=== PATIENT | female | born 1995 | race Caucasian/White ===

== ENCOUNTER → 2019-01-02 | Outpatient (CLI) | payer OTHER ==
[~2019-01-02] MED LIST: ALBU90OI61 INH; ESCI20 PO; OMEP20ER PO; ORTHO TRI-CYCL1 EACH PO
[2019-01-02 14:36] LABS: U Amphetamine Screen Not Detected; U Barbituate Screen Not Detected; U Benzodiazapine Screen Not Detected; U Buprenorphine Screen Not Detected; U Cannabinoids Screen Not Detected; U Cocaine Screen Not Detected; U Methadone Screen Not Detected; U Methamphetamine Screen Not Detected; U Opiates Screen Not Detected; U Oxycodone Screen Not Detected; U Phencyclidine Screen Not Detected; U Propoxyphene Screen Not Detected
[2019-01-06 04:13] LABS: COTININE Negative ng/mL (Cutoff=300)
== END | disposition home or self-care (01) ==
LOC: LAB 11:34 → LAB SHORT 11:34
PROVIDERS: Surgery
DX: Z01.812 Encounter for preprocedural laboratory examination (principal); E55.9 Vitamin D deficiency, unspecified; E66.01 Morbid (severe) obesity due to excess calories

== ENCOUNTER 2021-04-30 16:14 | Observation (INO) | payer OTHER ==
[~2021-04-30] VITALS: Ht 160 cm; Wt 143.4 kg
[2021-04-30 16:49] LABS: BASOPHILS ABSOLUTE AUTO 0.05 K/mm3 (0.00-0.23); BASOPHILS PERCENT AUTO 0 % (0-2); EOSINOPHILS ABSOLUTE AUTO 0.02 K/mm3 (0.00-0.68); EOSINOPHILS PERCENT AUTO 0 % (0-6); Hematocrit 42.1 % (33.0-51.0); Hemoglobin 14.1 g/dL (11.5-16.0); IMMATURE GRAN ABSOLUTE AUTO 0.06 K/mm3 (0.00-0.10); IMMATURE GRAN PERCENT AUTO 1 % (0-1); LYMPHOCYTES ABSOLUTE AUTO 1.64 K/mm3 (0.84-5.20); LYMPHOCYTES PERCENT AUTO 15 % (21-46); MONOCYTES ABSOLUTE AUTO 0.39 K/mm3 (0.16-1.47); MONOCYTES PERCENT AUTO 4 % (4-13); Mean Corpuscular HGB 29.1 pg (26.0-34.0); Mean Corpuscular HGB Conc 33.5 g/dL (31.5-36.5); Mean Corpuscular Volume 87 fL (80-100); Mean Platelet Volume 10.3 fL (9.1-12.4); NEUTROPHILS ABSOLUTE AUTO 8.99 K/mm3 (1.96-9.15); NEUTROPHILS PERCENT AUTO 81 % (41-73); Platelet Count 250 K/mm3 (150-400); RDW Coefficient Variation 12.8 % (11.7-14.2); RDW Standard Deviation 40.4 fL (35.1-46.3); Red Blood Cell Count 4.84 M/mm3 (3.80-5.20); White Blood Cell Count 11.15 K/mm3 (4.00-11.30)
[2021-04-30 17:06] LABS: Alanine Aminotransfer (ALT/SGP 153 U/L (12-78); Albumin, Blood 3.4 g/dL (3.4-5.0); Albumin/Globulin Ratio 0.7 (0.8-1.8); Alk Phos 100 U/L (50-136); Anion Gap 9 mmol/L (6-16); Aspartate Aminotrans (AST/SGOT 167 U/L (12-37); Bilirubin, Total 0.5 mg/dL (0.1-1.0); Blood Urea Nitrogen 11 mg/dL (8-24); Bun/Creatinine Ratio 16.8 (12.0-20.0); CO2, Blood 23 mmol/L (21-32); Calcium, Blood 9.6 mg/dL (8.5-10.1); Chloride, Blood 103 mmol/L (98-108); Creatinine, Blood 0.65 mg/dL (0.40-1.00); Globulin, Blood 5.2 g/dL (2.2-4.0); Glomerular Filtration Rate >60 (60-); Glucose, Blood 233 mg/dL (70-99); Sodium, Blood 135 mmol/L (136-145); Total Protein, Blood 8.6 g/dL (6.4-8.2)
[2021-04-30] MEDS ORDERED: OMEP20ER PO (17:37)
[2021-04-30 18:30] LABS: Source, Urine Clean Catch
[2021-04-30 18:38] LABS: Appearance, Urine Clear (Clear); Bilirubin, Urine Neg (Neg); Blood, Urine 2+ (Neg); Color, Urine Amber (P-Yellow); Glucose Qualitative, Urine 3+ (Neg); Ketones, Urine 1+ (Neg); Leukocyte Esterase, Urine 1+ (Neg); Nitrite, Urine Neg (Neg); Protein, Urine 4+ (Neg); Specific Gravity, Urine 1.015 (1.003-1.022); Urobilinogen, Urine NORM (Normal)
[2021-04-30 18:43] LABS: Bacteria Many /hpf; Mucus Light (0-Heavy); Red Blood Cells, Urine 0-2 /hpf (0-2); Squamous Epithelial Cells Mod /hpf (Few)
--- NOTE | 2021-05-01 05:55 | NUR ---
SHIFT SUMMARY: RAJEEV IS A&OX4. VSS, NO ACUTE EVENTS OVERNIGHT. SHE REPORTS ADEQUATE PAIN CONTROL WITH 50 MCG OF FENTANYL. IF TO R FOREARM PATENT. SHE IS A ONE PERSON STANDBY ASSIST FOR CORDS/IV POLE. SHE REFUSED NON-SLIP SOCKS DESPITE EDUCATING ON IMPORTANCE OF SAFETY AND FALL PREVENTION. SHE IS URINATING WITHOUT DIFFICULTY, WAS TOLERATING PO INTAKE WELL UNTIL BEING MADE NPO AT MIDNIGHT. SHE IS LYING IN BED WITH THE CALL LIGHT IN REACH. WILL REPORT TO DAY SHIFT RN.
[2021-05-01 10:18] LABS: SARS-Cov-2 (COVID-19) PCR, MMC NEGATIVE (NEGATIVE)
--- NOTE | 2021-05-01 10:37 | NUR ---
DR CHAUDHARY IN TO SEE PT.
--- NOTE | 2021-05-01 13:15 | NUR ---
PT TO SURGERY GRANDMOTHER AT BEDSIDE.
--- NOTE | 2021-05-01 13:23 | NUR ---
History, Chart, Medications and Allergies reviewed before start of procedure. Lungs clear T/O to Auscultation. Patient confirms NPO status and agrees with scheduled surgery. Pre-Op teaching done. Pt verbalizes understanding.
--- NOTE | 2021-05-01 15:10 | NUR ---
05/01/21 1510 YOLANDATHEO PT RECEIVED SCHEDULED DOSE IF ANTIBIOTICS PRIOR TO PROCEDURE PER DR ORDERS.
--- NOTE | 2021-05-01 18:35 | NUR ---
SUMMARY PT ARRIVED BACK TO UNIT FROM PACU APPROXIMATELY 1715. SCOOTED SELF OVER FROM GURNEY TO BED. VSS. AMBULATED TO RESTROOM AT APPROXIMATELY 1815 AND VOIDED 200 ML DARK YELLOW URINE. USED GAIT BELT FOR SAFETY; PT REPORTED FELT SLIGHTLY DIZZY BUT IMPROVED ON WAY BACK TO BED FROM RESTROOM. CALL LIGHT IN REACH. IV FLUIDS INFUSING PER ORDERS. GAUZE AND TRANSPARENT WINDOWS TO 4 LAP SITES.
--- NOTE | 2021-05-01 19:03 | NUR ---
REPORT GIVEN TO ONCOMING SHIFT.
--- NOTE | 2021-05-02 04:04 | NUR ---
SHIFT SUMMARY: PT POD#1 FOR A LAP APPY. LAP SITES C/D/I WITH GAUZE AND TEGADERM. ACTIVE BT X4. PT REPORTS PASSING FLATUS. TOLERATING A CLEAR LIQUID DIET THROUGHOUT NIGHT. DENIES N/V. PAIN MANAGED WITH TORADOL PER EMAR. PT INDEPENDENT IN ROOM. VOIDING WELL. PT HAD 2 SMALL BM'S THIS MORNING.
--- NOTE | 2021-05-02 10:41 | NUR ---
DR CHAUDHRAY IN TO SEE PT.
--- NOTE | 2021-05-02 12:51 | NUR ---
DISCHARGED DC'D IV, CATHETER INTACT. REVIEWED DC INSTRUCTIONS W/PT; VERBALIZED UNDERSTANDING. PT LEFT UNIT IN WC W/POSSESSIONS IN HAND TO RIDE AWAITING OUTSIDE.
== END 2021-05-02 12:54 | disposition home or self-care (01) ==
LOC: ER 16:14 → SURS 20:04
PROVIDERS: Physician Assistant; Surgery; ADMIT Surgery
PROC: 0DTJ4ZZ Resection of Appendix, Percutaneous Endoscopic Approach (ICD-10-PCS; principal; 2021-05-01 13:00)
DX: K35.33 Acute appendicitis with perforation, localized peritonitis, and gangrene, with abscess (principal); K21.9 Gastro-esophageal reflux disease without esophagitis; K76.0 Fatty (change of) liver, not elsewhere classified; E66.01 Morbid (severe) obesity due to excess calories; Z68.43 Body mass index [BMI] 50.0-59.9, adult; Z88.5 Allergy status to narcotic agent; Z20.822 Contact with and (suspected) exposure to COVID-19
CPT/HCPCS: 36415; 74177; 80053; 81001; 81025; 83690; 85025; 87086; 88304; 94760; 96361; 96374-59; 96375; 96376; 99285-25; A9270; G0378; J0295; J1100; J1200; J1885; J2270; J2405; J2704; J3010; J7030; J7120; Q9967; U0004

== ENCOUNTER → 2021-08-12 | Outpatient (CLI) | payer OTHER ==
[~2021-08-12] MED LIST changes: +ECOTRIN325 MG PO; +NORETH EE FE PO
[2021-08-12 11:04] LABS: BASOPHILS ABSOLUTE AUTO 0.01 K/mm3 (0.00-0.23); BASOPHILS PERCENT AUTO 0 % (0-2); EOSINOPHILS PERCENT AUTO 0 % (0-6); Hematocrit 41.7 % (33.0-51.0); Hemoglobin 13.7 g/dL (11.5-16.0); IMMATURE GRAN ABSOLUTE AUTO 0.01 K/mm3 (0.00-0.10); IMMATURE GRAN PERCENT AUTO 0 % (0-1); LYMPHOCYTES ABSOLUTE AUTO 1.35 K/mm3 (0.84-5.20); LYMPHOCYTES PERCENT AUTO 39 % (21-46); MONOCYTES ABSOLUTE AUTO 0.17 K/mm3 (0.16-1.47); MONOCYTES PERCENT AUTO 5 % (4-13); Mean Corpuscular HGB Conc 32.9 g/dL (31.5-36.5); Mean Corpuscular Volume 88 fL (80-100); Mean Platelet Volume 10.7 fL (9.1-12.4); NEUTROPHILS ABSOLUTE AUTO 1.97 K/mm3 (1.96-9.15); NEUTROPHILS PERCENT AUTO 56 % (41-73); Platelet Count 119 K/mm3 (150-400); RDW Coefficient Variation 13.8 % (11.7-14.2); RDW Standard Deviation 44.6 fL (35.1-46.3); Red Blood Cell Count 4.72 M/mm3 (3.80-5.20); White Blood Cell Count 3.51 K/mm3 (4.00-11.30)
[2021-08-12 11:17] LABS: Alanine Aminotransfer (ALT/SGP 217 U/L (12-78); Albumin, Blood 3.2 g/dL (3.4-5.0); Albumin/Globulin Ratio 0.7 (0.8-1.8); Alk Phos 95 U/L (40-126); Anion Gap 14 mmol/L (6-16); Aspartate Aminotrans (AST/SGOT 284 U/L (12-37); Bilirubin, Total 0.3 mg/dL (0.1-1.0); Blood Urea Nitrogen 10 mg/dL (8-24); Bun/Creatinine Ratio 10.5 (12.0-20.0); CO2, Blood 22 mmol/L (21-32); Calcium, Blood 8.6 mg/dL (8.5-10.1); Chloride, Blood 103 mmol/L (98-108); Creatinine, Blood 0.95 mg/dL (0.40-1.00); Globulin, Blood 4.7 g/dL (2.2-4.0); Glomerular Filtration Rate >60 (60-); Glucose, Blood 126 mg/dL (70-99); Potassium, Blood 3.6 mmol/L (3.5-5.5); Sodium, Blood 139 mmol/L (136-145); Total Protein, Blood 7.9 g/dL (6.4-8.2)
== END | disposition home or self-care (01) ==
LOC: LAB SHORT 11:00
PROVIDERS: Physician Assistant Surgical
DX: R06.00 Dyspnea, unspecified (principal)
CPT/HCPCS: 80053; 85025; 85379

== ENCOUNTER 2021-08-15 18:30 | Inpatient (IN) | payer OTHER ==
[~2021-08-15] VITALS: Ht 157.5 cm; Wt 163.3 kg
[~2021-08-15 18:30] MED LIST changes: -ECOTRIN325 MG PO; -NORETH EE FE PO
[2021-08-15] MEDS ORDERED: NORETH EE FE PO (18:36)
[2021-08-15] MEDS ORDERED: ECOTRIN325 MG PO (18:37)
[2021-08-15 18:52] LABS: BASOPHILS ABSOLUTE AUTO 0.01 K/mm3 (0.00-0.23); BASOPHILS PERCENT AUTO 0 % (0-2); EOSINOPHILS PERCENT AUTO 0 % (0-6); Hematocrit 38.3 % (33.0-51.0); Hemoglobin 12.6 g/dL (11.5-16.0); IMMATURE GRAN ABSOLUTE AUTO 0.03 K/mm3 (0.00-0.10); IMMATURE GRAN PERCENT AUTO 1 % (0-1); LYMPHOCYTES ABSOLUTE AUTO 1.01 K/mm3 (0.84-5.20); LYMPHOCYTES PERCENT AUTO 21 % (21-46); MONOCYTES ABSOLUTE AUTO 0.17 K/mm3 (0.16-1.47); MONOCYTES PERCENT AUTO 4 % (4-13); Mean Corpuscular HGB 28.6 pg (26.0-34.0); Mean Corpuscular HGB Conc 32.9 g/dL (31.5-36.5); Mean Corpuscular Volume 87 fL (80-100); Mean Platelet Volume 10.9 fL (9.1-12.4); NEUTROPHILS ABSOLUTE AUTO 3.64 K/mm3 (1.96-9.15); NEUTROPHILS PERCENT AUTO 75 % (41-73); Platelet Count 142 K/mm3 (150-400); RDW Coefficient Variation 13.6 % (11.7-14.2); RDW Standard Deviation 43.9 fL (35.1-46.3); White Blood Cell Count 4.86 K/mm3 (4.00-11.30)
[2021-08-15 18:58] LABS: Alanine Aminotransfer (ALT/SGP 134 U/L (12-78); Albumin, Blood 2.8 g/dL (3.4-5.0); Albumin/Globulin Ratio 0.6 (0.8-1.8); Alk Phos 78 U/L (50-136); Anion Gap 7 mmol/L (6-16); Aspartate Aminotrans (AST/SGOT 203 U/L (12-37); Bilirubin, Total 0.4 mg/dL (0.1-1.0); Blood Urea Nitrogen 13 mg/dL (8-24); Bun/Creatinine Ratio 16.2 (12.0-20.0); CO2, Blood 24 mmol/L (21-32); Calcium, Blood 8.7 mg/dL (8.5-10.1); Chloride, Blood 109 mmol/L (98-108); Globulin, Blood 4.5 g/dL (2.2-4.0); Glomerular Filtration Rate >60 (60-); Glucose, Blood 138 mg/dL (70-99); Potassium, Blood 3.3 mmol/L (3.5-5.5); Sodium, Blood 140 mmol/L (136-145); Total Protein, Blood 7.3 g/dL (6.4-8.2)
--- NOTE | 2021-08-15 22:16 | NUR ---
ADMITTED 26 YR OLD FEMALE WITH COVID 19. ON BIPAP WITH HIGH FLOW AIR. ORIENTED TO USE OF CALL LIGHT. INSTRUCTED NOT TO GET OUT OF BED IF FEELS DIZZY, ETC. AGREES TO [place] CALL LIGHT IF NEEDED. CALL LIGHT IN REACH
[2021-08-16 04:56] LABS: BASOPHILS PERCENT AUTO 0 % (0-2); EOSINOPHILS PERCENT AUTO 0 % (0-6); Hemoglobin 12.5 g/dL (11.5-16.0); Mean Corpuscular HGB 28.8 pg (26.0-34.0); Mean Corpuscular HGB Conc 32.9 g/dL (31.5-36.5); Mean Corpuscular Volume 88 fL (80-100); Mean Platelet Volume 10.8 fL (9.1-12.4); Platelet Count 139 K/mm3 (150-400); RDW Coefficient Variation 13.7 % (11.7-14.2); RDW Standard Deviation 44.1 fL (35.1-46.3); Red Blood Cell Count 4.34 M/mm3 (3.80-5.20); White Blood Cell Count 2.34 K/mm3 (4.00-11.30)
[2021-08-16 04:57] LABS: IMMATURE GRAN ABSOLUTE AUTO 0.01 K/mm3 (0.00-0.10); IMMATURE GRAN PERCENT AUTO 0 % (0-1); LYMPHOCYTES ABSOLUTE AUTO 0.64 K/mm3 (0.84-5.20); LYMPHOCYTES PERCENT AUTO 27 % (21-46); MONOCYTES ABSOLUTE AUTO 0.11 K/mm3 (0.16-1.47); MONOCYTES PERCENT AUTO 5 % (4-13); NEUTROPHILS ABSOLUTE AUTO 1.58 K/mm3 (1.96-9.15); NEUTROPHILS PERCENT AUTO 68 % (41-73)
--- NOTE | 2021-08-16 05:43 | NUR ---
Pt AAOx3, admitted for COVID last evening. Pt on CPAP at 50%, tolerating well. Desats when gets up to BSC, but recovers quickly. Pt has fraile veins, is on tele, SR Plan: Respiratory support, continue POC
[2021-08-16 05:48] LABS: Alanine Aminotransfer (ALT/SGP 120 U/L (12-78); Albumin, Blood 2.6 g/dL (3.4-5.0); Albumin/Globulin Ratio 0.6 (0.8-1.8); Alk Phos 78 U/L (50-136); Anion Gap 10 mmol/L (6-16); Aspartate Aminotrans (AST/SGOT 150 U/L (12-37); Bilirubin, Total 0.5 mg/dL (0.1-1.0); Blood Urea Nitrogen 13 mg/dL (8-24); Bun/Creatinine Ratio 19.4 (12.0-20.0); CO2, Blood 22 mmol/L (21-32); Calcium, Blood 8.7 mg/dL (8.5-10.1); Chloride, Blood 107 mmol/L (98-108); Creatinine, Blood 0.67 mg/dL (0.40-1.00); Globulin, Blood 4.6 g/dL (2.2-4.0); Glomerular Filtration Rate >60 (60-); Glucose, Blood 207 mg/dL (70-99); Potassium, Blood 3.7 mmol/L (3.5-5.5); Sodium, Blood 139 mmol/L (136-145); Total Protein, Blood 7.2 g/dL (6.4-8.2)
--- NOTE | 2021-08-16 12:35 | NUR ---
ADMIT: 08/15/21 DISCHARGE: DX: COVID-19 CC: [facility] CALL: RESIDENCE: [address] [place] [address] [address] [place] [id number] EMERGENCY CONTACT: ROLANDA MONIKA (PARENT) DX: COVID-19, sleep apnea, depressive disorder DME: Oxygen and equipment CCM: none HOME HEALTH: none SUMMARY: Admit: 08/15/21 08/16/21- per chart review with Dr. Alexis, no plan for d/c at this time. Plan is for her to potentially discharge sometime next week. -sarah
--- NOTE | 2021-08-17 06:01 | NUR ---
PATIENT IS ASLEEP LYING IN BED. MILDLY LABORED BREATHING, AND SOB CURRENTLY ON HIGH FLOW 02. NO ACUTE CHANGES OVERNIGHT CURRENT 02 94%. BED IN LOW POSITION AND CALL LIGHT WITHIN REACH.
--- NOTE | 2021-08-17 09:56 | NUR ---
08/17/21- per chart review with Dr. Alexis, no plan for d/c at this time will not discharge at least for a couple of days. -sarah
--- NOTE | 2021-08-17 18:27 | NUR ---
a+o but anxious, call light in reach, covid restrictions in place, airvo 40L, saline locked, will continue to monitor and treat until share report with noc nurse
[2021-08-18 05:06] LABS: BASOPHILS ABSOLUTE AUTO 0.01 K/mm3 (0.00-0.23); BASOPHILS PERCENT AUTO 0 % (0-2); EOSINOPHILS PERCENT AUTO 0 % (0-6); Hematocrit 40.4 % (33.0-51.0); Hemoglobin 12.9 g/dL (11.5-16.0); IMMATURE GRAN ABSOLUTE AUTO 0.04 K/mm3 (0.00-0.10); IMMATURE GRAN PERCENT AUTO 1 % (0-1); LYMPHOCYTES ABSOLUTE AUTO 1.79 K/mm3 (0.84-5.20); LYMPHOCYTES PERCENT AUTO 32 % (21-46); MONOCYTES ABSOLUTE AUTO 0.34 K/mm3 (0.16-1.47); MONOCYTES PERCENT AUTO 6 % (4-13); Mean Corpuscular HGB 28.2 pg (26.0-34.0); Mean Corpuscular HGB Conc 31.9 g/dL (31.5-36.5); Mean Corpuscular Volume 88 fL (80-100); Mean Platelet Volume 10.8 fL (9.1-12.4); NEUTROPHILS ABSOLUTE AUTO 3.39 K/mm3 (1.96-9.15); NEUTROPHILS PERCENT AUTO 61 % (41-73); Platelet Count 185 K/mm3 (150-400); RDW Coefficient Variation 13.4 % (11.7-14.2); RDW Standard Deviation 43.8 fL (35.1-46.3); Red Blood Cell Count 4.57 M/mm3 (3.80-5.20); White Blood Cell Count 5.57 K/mm3 (4.00-11.30)
[2021-08-18 05:27] LABS: Alanine Aminotransfer (ALT/SGP 85 U/L (12-78); Albumin, Blood 2.7 g/dL (3.4-5.0); Albumin/Globulin Ratio 0.6 (0.8-1.8); Alk Phos 73 U/L (50-136); Anion Gap 8 mmol/L (6-16); Aspartate Aminotrans (AST/SGOT 78 U/L (12-37); Bilirubin, Total 0.4 mg/dL (0.1-1.0); Blood Urea Nitrogen 19 mg/dL (8-24); Bun/Creatinine Ratio 27.6 (12.0-20.0); CO2, Blood 24 mmol/L (21-32); Calcium, Blood 8.7 mg/dL (8.5-10.1); Chloride, Blood 111 mmol/L (98-108); Creatinine, Blood 0.69 mg/dL (0.40-1.00); Globulin, Blood 4.4 g/dL (2.2-4.0); Glomerular Filtration Rate >60 (60-); Glucose, Blood 161 mg/dL (70-99); Magnesium, Blood 2.6 mg/dL (1.6-2.4); Phosphorus, Blood 4.1 mg/dL (2.5-4.9); Potassium, Blood 3.7 mmol/L (3.5-5.5); Sodium, Blood 143 mmol/L (136-145); Total Protein, Blood 7.1 g/dL (6.4-8.2)
--- NOTE | 2021-08-18 06:41 | NUR ---
PATIENT IS ASLEEP LYING IN BED.CURRENTLY ON HIGH FLOW AND NRB MASK PT DESATS TO 77-80% QUICKLY WITH MINIMAL MOVEMENT AND TAKES A WHILE TO RECOVER AND MAINTAIN 02. REINFORCED THE IMPORTANCE OF PROPER POSITIONING IN BED AND BREATHING TECHNIQUES. BED IN LOW POSITION AND CALL LIGHT WITHIN REACH.
--- NOTE | 2021-08-18 15:24 | NUR ---
SHIFT SUMMARY NO ACUTE CHANGES TO PRESENT THIS SHIFT. PT IS A&O, UP INDEPENDENTLY TO BSC NEEDED. CALLS FOR ASSIST WITH LOOSE STOOLS, FOR HELP WITH GETTING CLEANED UP. LINENS CHANGED NEEDED. O2 SATS HAVE REMAINED STABLE TODAY; BIOX MOSTLY AT 100%. PT DESATS WHEN UP TO BSC, BECAUSE SHE TAKES HER MASK OFF AND FORGETS TO PUT IT BACK ON; RECOVERS WELL WHEN BACK ON. RT HERE RECENTLY TO ADJUST SETTINGS. PT WANTING TO GO HOME, BUT NEEDS TO BE ABLE TO REDUCE O2 NEEDS. BREATHING EXERCISES GIVEN TO PT BY RT. PT ENCOURAGED TO DO THEM TO ASSIST WITH IMPROVEMENT. UPDATE GIVEN TO PT'S MOTHER, PER PT REQUEST. DENIED FURTHER NEEDS. CALL LT IN REACH.
--- NOTE | 2021-08-19 06:23 | NUR ---
PATIENT IS ASLEEP LYING IN BED. VS WNL, PATIENT IS CURRENTLY ON HIGHFLOW AND NRB MASK. NO EVIDENCE OF PAIN OR RESP DISTRESS 02 CURRENTLY 94%. BED IN LOW POSTION AND CALL LIGHT WITHIN REACH.
--- NOTE | 2021-08-19 09:43 | NUR ---
Pt referred by RN for Spiritual Care visit. Female pt presented layin sideways in bed with TV on in background. When asked if pt would like a visit, pt shared she does not want a visit right now, but maybe later. Will follow up for further spiritual care.
--- NOTE | 2021-08-19 19:32 | NUR ---
Shift Summary, The patient is A/OX4 to person, place, time and event. The patient is pleasent and cooperative with care, She has a sad affect on introduction because she wanted to go home because she misses her 5y/o son. The Patient and this nurse set goals this am and talked about the importance of exercising and breathing. We talked about exercises that she could do in the bed and we talked about sitting up for meals. The patient and this nurse talked about taking deep breaths and lying on her sides when she is sleeping. The patient had an insintive spirometer and she was able to show how to use it. She was told to use it during commercial breaks when watching tv. The patient's mother stopped by this afternoon and it brightened the patient's affect. The patient seem more encouraged to exerise and do breathing. The patient on high flow at 65%and 45 she also uses a NRB at 15lpm PRN. This afternoon the patient sat on the edge of the bed and was able to remove the NRB and she remained >90%spo2. The patient denies any chest pain or SOB thoughout the day. She does desat with exersion. She has been eating and has requested snacks this afternoon. The patient was a 1prsn to the [facility] this morning and afternoon. Currently the patient is lying in her bed with both the high flow and NRB on and spo2 98%.
--- NOTE | 2021-08-20 02:34 | NUR ---
NOTIFIED SHEARING SHED WORKER MD OF PATIENT BEING JOSE AND HR DROPPING LOW 39, PATIENT CURRENTLY ASYMPTOMATIC. WILL TREAT ORDERED. SHEARING SHED WORKER MD RECOMMENDS ECHO TO BE CONDUCTED IN THE AM.
[2021-08-20 05:08] LABS: Albumin, Blood 2.7 g/dL (3.4-5.0); Anion Gap 5 mmol/L (6-16); Blood Urea Nitrogen 20 mg/dL (8-24); Bun/Creatinine Ratio 31.6 (12.0-20.0); CO2, Blood 25 mmol/L (21-32); Chloride, Blood 109 mmol/L (98-108); Creatinine, Blood 0.63 mg/dL (0.40-1.00); Glomerular Filtration Rate >60 (60-); Glucose, Blood 136 mg/dL (70-99); Magnesium, Blood 2.3 mg/dL (1.6-2.4); Potassium, Blood 3.9 mmol/L (3.5-5.5); Sodium, Blood 139 mmol/L (136-145)
--- NOTE | 2021-08-20 05:44 | NUR ---
PATIENT ASLEEP LYING IN BED. PATIENT HAS BEEN CONSISTENTLY BRADYCARDIC ALL NIGHT, CURRENTLY ASYPTOMATIC. PT IS STILL ON HIGH FLOW WITH NRB MASK AT 95%. DENIES PAIN AND NO EVIDENCE OF RESP DISTRESS. BED IN LOW POSITION AND CALL LIGHT WITHIN REACH.
--- NOTE | 2021-08-20 12:20 | NUR ---
Echocardiogram completed.
--- NOTE | 2021-08-20 18:26 | NUR ---
Shift Summary, The patient is A/OX4 to person, place, time and event. The patient is pleasent and cooperative with care. She has had a brighter affect this morning and seemed encouraged to due breathing execises and bed execises. This nurse and the patient set goals this morning to try and reduce o2 and get up to chair. The patient was on 40/65% this am and now she is on 40/40% high flow. her spo2 >95% while she has been sitting up. The patient was able to move to the chair this afternoon for lunch and remained in the chair until dinner. Her SPO2 decreases to around 88% but rebounds at rest to >90%. The patient and this nurse talked about wearing the CPAP tonight for sleeping to improve her air consumtion and she requested something for anxiety because of the mask. The patient requested that medication be used to help with anxiety. The patient has been eating well and ate snacks inbetween meals. The patient is a 1 prsn assist to the bsc. She is currently lying in her bed watching tv.
--- NOTE | 2021-08-21 04:00 | NUR ---
SUMMARY PT TRIED TO USE CPAP THIS SHIFT. PT WAS MEDICATED ORDERED. PT TOLERATED CPAP WELL FOR SEVERAL HOURS. PT CALLED AND ASKED TO BE PUT BACK ON AIRVO. PT STATED SHE COULD NOT WEAR CPAP ANY LONGER. PT SPO2 WAS 95-100% ON CPAP. PT BACK ON AIRVO AND IN NO DISTRESS. PT HAD NO OTHER ISSUES NOTED. PT CURRENTLY RESTING. PT GETS SOB WILL LITTLE EXERTION. CALL LIGHT IN REACH.
[2021-08-21 05:26] LABS: Albumin, Blood 2.6 g/dL (3.4-5.0); Anion Gap 8 mmol/L (6-16); Blood Urea Nitrogen 19 mg/dL (8-24); Bun/Creatinine Ratio 28.8 (12.0-20.0); CO2, Blood 24 mmol/L (21-32); Calcium, Blood 8.6 mg/dL (8.5-10.1); Chloride, Blood 107 mmol/L (98-108); Creatinine, Blood 0.66 mg/dL (0.40-1.00); Glomerular Filtration Rate >60 (60-); Glucose, Blood 137 mg/dL (70-99); Magnesium, Blood 2.2 mg/dL (1.6-2.4); Phosphorus, Blood 3.8 mg/dL (2.5-4.9); Sodium, Blood 139 mmol/L (136-145)
[2021-08-22 05:27] LABS: Albumin, Blood 2.7 g/dL (3.4-5.0); Anion Gap 7 mmol/L (6-16); Blood Urea Nitrogen 17 mg/dL (8-24); Bun/Creatinine Ratio 28.1 (12.0-20.0); CO2, Blood 24 mmol/L (21-32); Calcium, Blood 8.9 mg/dL (8.5-10.1); Chloride, Blood 106 mmol/L (98-108); Glomerular Filtration Rate >60 (60-); Glucose, Blood 150 mg/dL (70-99); Magnesium, Blood 2.2 mg/dL (1.6-2.4); Phosphorus, Blood 3.7 mg/dL (2.5-4.9); Potassium, Blood 3.9 mmol/L (3.5-5.5); Sodium, Blood 137 mmol/L (136-145)
--- NOTE | 2021-08-22 17:59 | NUR ---
NO ACUTE CHANGES PT IS AOX3 AND VERY MUCH WANTING TO GO HOME. PT HAS TROUBLE UNDERSTANDING WHY HER O2 NEEDS ARE KEEPING HER AT THE HOSPITAL. PT GET VERY UPSET AT TIMES AND THIS [employer] TRIED TO EXPLAIN WHY SHE STILL NEED TO BE HERE. PT DOING WELL AT THIS TIME AND RT IS WORKING TO SLOWLY GET HER TITRATED DOWN. PT IS A ONE PERSON STANDBY ASSIST. CALL LIGHT IS WITHIN REACH WILL CONTINUE TO MONITOR.
[2021-08-23 05:28] LABS: Albumin, Blood 2.8 g/dL (3.4-5.0); Anion Gap 8 mmol/L (6-16); Blood Urea Nitrogen 17 mg/dL (8-24); Bun/Creatinine Ratio 27.5 (12.0-20.0); CO2, Blood 23 mmol/L (21-32); Calcium, Blood 9.2 mg/dL (8.5-10.1); Chloride, Blood 104 mmol/L (98-108); Creatinine, Blood 0.62 mg/dL (0.40-1.00); Glomerular Filtration Rate >60 (60-); Glucose, Blood 160 mg/dL (70-99); Magnesium, Blood 2.3 mg/dL (1.6-2.4); Phosphorus, Blood 3.9 mg/dL (2.5-4.9); Sodium, Blood 135 mmol/L (136-145)
--- NOTE | 2021-08-23 06:36 | NUR ---
PT more alert, being weaned back off airvo 35/40 per RT. PT up on side of bed more active. Continues on tele bradycardia 39 to high 50's. Morbidly obese. Continues on rocephin IV antibiotic. Covid 19 weeks ago resp failure.
--- NOTE | 2021-08-23 17:37 | NUR ---
PT AO AND COOPERATIVE OF CARE. PT SEEMS TO BE DOING MUCH BETTER TODAY AND IS ON HIGH FLOW 4L MAINTIANING MID 90s. PT APPEARS MUCH BETTER TODAY AND HAPPIER. NO DISTRESS NOTED AND USES CALL LIGHT APPROPRIATELY. WILL CONTINUE TO MONITOR.
--- NOTE | 2021-08-24 04:26 | NUR ---
PT IS A&O. RESPIRATIONS EVEN AND UNLABORED. PT DENIES PAIN. PT IS MED COMPLIANT, ADLS PROVIDE, SAFETY MEASURES IN PLACE. WILL CONTINUE TO MONITOR.
[2021-08-24 04:48] LABS: BASOPHILS ABSOLUTE AUTO 0.02 K/mm3 (0.00-0.23); BASOPHILS PERCENT AUTO 0 % (0-2); EOSINOPHILS ABSOLUTE AUTO 0.02 K/mm3 (0.00-0.68); EOSINOPHILS PERCENT AUTO 0 % (0-6); Hemoglobin 12.9 g/dL (11.5-16.0); IMMATURE GRAN PERCENT AUTO 3 % (0-1); LYMPHOCYTES ABSOLUTE AUTO 2.13 K/mm3 (0.84-5.20); LYMPHOCYTES PERCENT AUTO 32 % (21-46); MONOCYTES ABSOLUTE AUTO 0.41 K/mm3 (0.16-1.47); MONOCYTES PERCENT AUTO 6 % (4-13); Mean Corpuscular HGB 28.5 pg (26.0-34.0); Mean Corpuscular HGB Conc 33.1 g/dL (31.5-36.5); Mean Corpuscular Volume 86 fL (80-100); Mean Platelet Volume 10.9 fL (9.1-12.4); NEUTROPHILS ABSOLUTE AUTO 3.92 K/mm3 (1.96-9.15); NEUTROPHILS PERCENT AUTO 59 % (41-73); Platelet Count 218 K/mm3 (150-400); RDW Coefficient Variation 13.5 % (11.7-14.2); RDW Standard Deviation 41.5 fL (35.1-46.3); Red Blood Cell Count 4.52 M/mm3 (3.80-5.20)
[2021-08-24 05:13] LABS: Anion Gap 8 mmol/L (6-16); Blood Urea Nitrogen 19 mg/dL (8-24); Bun/Creatinine Ratio 32.4 (12.0-20.0); CO2, Blood 24 mmol/L (21-32); Calcium, Blood 9.3 mg/dL (8.5-10.1); Chloride, Blood 104 mmol/L (98-108); Creatinine, Blood 0.59 mg/dL (0.40-1.00); Glomerular Filtration Rate >60 (60-); Glucose, Blood 145 mg/dL (70-99); Magnesium, Blood 2.4 mg/dL (1.6-2.4); Phosphorus, Blood 4.3 mg/dL (2.5-4.9); Sodium, Blood 136 mmol/L (136-145)
--- NOTE | 2021-08-24 17:37 | NUR ---
SHIFT SUMMARY PATIENT IS ALERT AND ORIENTED AND COOPERATIVE WITH CARE. PATIENT IS INDEPENDENT IN THEIR ROOM. PATIENT IS ON 2 LPM VIA HIGH FLOW NASAL CANNULA SATTING AT 95%, NO ACUTE CHANGES THIS SHIFT. PATIENT MAY POSSIBLY DISCHARGE TOMORROW.
--- NOTE | 2021-08-25 04:59 | NUR ---
END PF SHIFT REPORT: Pt is pleasant. AXOx4. No acute events overnight. Pt is on 2LNC sats >95% no complaints of SOB. Denies any discomfort. Can voice needs, call light within reach.
--- NOTE | 2021-08-25 12:08 | NUR ---
Per chart review, pt. appropriate for discharge today. She has oxygen equipment at home per chart. No need for home 02 eval as she will not require a new regulator. [facility] team will schedule hospital F/U within 24-48 hours post discharge. No additional needs identified.
[2021-08-25] MEDS ORDERED: METF500 PO (13:17)
[2021-08-25] MEDS ORDERED: XARELTO10 M1 PO (13:18)
--- NOTE | 2021-08-25 15:41 | NUR ---
DISCHARGE NOTE PATIENT DISCHARGED HOME WITH MOTHER THIS SHIFT VIA WHEELCHAIR. PATIENT AND MOTHER UNDERSTOOD DISCHARGE INSTRUCTIONS AND MEDICATION LIST GIVEN. VITAL SIGNS STABLE AT DISCHARGE.
== END 2021-08-25 13:48 | disposition home or self-care (01) | DRG 177 ==
LOC: ER 18:30 → MEDS 20:41
PROVIDERS: Emergency Medicine; Family Medicine; Internal Medicine; ADMIT Family Medicine
PROC: XW033E5 Introduction of Remdesivir Anti-infective into Peripheral Vein, Percutaneous Approach, New Technology Group 5 (ICD-10-PCS; principal; 2021-08-15)
PROC: 3E0333Z Introduction of Anti-inflammatory into Peripheral Vein, Percutaneous Approach (ICD-10-PCS; 2021-08-15)
PROC: 8E0ZXY6 Isolation (ICD-10-PCS; 2021-08-15)
DX: U07.1 COVID-19 (principal); J12.82 Pneumonia due to coronavirus disease 2019; J96.01 Acute respiratory failure with hypoxia; Z68.44 Body mass index [BMI] 60.0-69.9, adult; E66.01 Morbid (severe) obesity due to excess calories; D69.59 Other secondary thrombocytopenia; E87.6 Hypokalemia; K21.9 Gastro-esophageal reflux disease without esophagitis; R79.89 Other specified abnormal findings of blood chemistry; E11.9 Type 2 diabetes mellitus without complications; K76.0 Fatty (change of) liver, not elsewhere classified; Z90.49 Acquired absence of other specified parts of digestive tract; Z98.890 Other specified postprocedural states; Z88.5 Allergy status to narcotic agent
CPT/HCPCS: 36415; 36416; 71045; 80053; 80069; 82947; 83605; 83735; 84100; 84145; 85025; 87040; 93005; 93010; 94640; 94660; 94667; 94760; 94762; 96365; 96366; 96375; 99285-25; A9270; C8929; J0696; J1100; J1650; J1815; J2060; J7050; Q9957